=== PATIENT | male | born 1970 | race Caucasian/White ===

== ENCOUNTER 2019-04-15 18:28 | Emergency (ER) | payer OTHER ==
[~2019-04-15] VITALS: Ht 180.3 cm; Wt 102.1 kg
[~2019-04-15 18:28] MED LIST: ACETAMINOPHEN-1 EAC1 PO; BACTRIM DS TAB1 EACH PO; CIPRO500 MG PO; KEFLEX500 MG PO; NOHOMEMEDICATIONS
[2019-04-15] MEDS ORDERED: AUGMENTIN 875-1 EACH PO (19:47)
[2019-04-15 20:17] VITALS: BP 140/90
== END 2019-04-15 20:17 | disposition home or self-care (01) ==
LOC: M.ERS 18:28
DX: S01.81XA Laceration without foreign body of other part of head, initial encounter (principal); W54.0XXA Bitten by dog, initial encounter; Y93.89 Activity, other specified; Y92.89 Other specified places as the place of occurrence of the external cause; Y99.8 Other external cause status